=== PATIENT | male | born 1995 | race Caucasian/White ===

== ENCOUNTER 2018-09-09 10:34 | Emergency (ER) | payer OTHER ==
[2018-09-09 10:44] VITALS: BP 114/72
--- NOTE | 2018-09-09 10:52 | EDPHY ---
H & P Stated Complaint: States vomited 2x's last night quarter size blood noted x1, epigastric pain Time Seen by Provider: 09/09/18 10:39 HPI/ROS: CHIEF COMPLAINT: Vomiting blood HISTORY OF PRESENT ILLNESS: Patient is a 22-year-old man who comes to the emergency department complaining that last night he was vomiting. It Mostly was food but he had a couple specks of blood. It is now resolved. It no longer feels nauseous. He denies abdominal pain. He does however complain of intermittent frequent episodes of heartburn that is epigastric. He has not tried taking any medications. He also states that he has a hemorrhoid but it is not bleeding. This is not as concerning to him currently. He has seen his primary doctor who told him to change his diet he states that he does not feel constipated typically. Currently no pain. No fever. Severity: Moderate Modifying factors: Spontaneously resolved REVIEW OF SYSTEMS: Constitutional: denies: chills, fever, recent illness, recent injury EENTM: denies: blurred vision, double vision, nose congestion Respiratory: denies: cough, shortness of breath Cardiac: denies: chest pain, irregular heart rate, lightheadedness, palpitations Gastrointestinal/Abdominal: See HPI Genitourinary: denies: dysuria, frequency, hematuria, pain Musculoskeletal: denies: joint pain, muscle pain Skin: denies: lesions, rash, jaundice, bruising Neurological: denies: headache, numbness, paresthesia, tingling, dizziness, weakness Hematologic/Lymphatic: denies: blood clots, easy bleeding, easy bruising Immunologic/allergic: denies: HIV/AIDS, transplant 10 systems reviewed and negative except as noted EXAM: GENERAL: Well-appearing, well-nourished and in no acute distress. HEAD: Atraumatic, normocephalic. EYES: Pupils equal round and reactive to light, extraocular movements intact, sclera anicteric, conjunctiva are normal. ENT: TMs normal, nares patent, oropharynx clear without exudates. Moist mucous membranes. NECK: Normal range of motion, supple without lymphadenopathy or JVD. LUNGS: Breath sounds clear to auscultation bilaterally and equal. No wheezes rales or rhonchi. HEART: Regular rate and rhythm without murmurs, rubs or gallops. ABDOMEN: Soft, nontender, normoactive bowel sounds. No guarding, no rebound. No masses appreciated. BACK: No CVA tenderness, no spinal tenderness, step-offs or deformities EXTREMITIES: Normal range of motion, no pitting or edema. No clubbing or cyanosis. NEUROLOGICAL: Cranial nerves II through XII grossly intact. Normal speech, normal gait. 5/5 strength, normal movement in all extremities, normal sensation , normal reflexes PSYCH: Normal mood, normal affect. SKIN: Warm, dry, normal turgor, no visible rashes or lesions. Source: Patient Exam Limitations: No limitations - Personal History Current Tetanus Diphtheria and Acellular Pertussis (TDAP): Yes Tetanus Vaccine Date: 2012 - Medical/Surgical History Hx Asthma: No Hx Chronic Respiratory Disease: No Hx Diabetes: No Hx Cardiac Disease: No Hx Renal Disease: No Hx Cirrhosis: No Hx Alcoholism: No Hx HIV/AIDS: No Hx Splenectomy or Spleen Trauma: No Other PMH: Med hx-none. Surg-none - Family History Significant Family History: No pertinent family hx - Social History Smoking Status: Never smoked Alcohol Use: None Constitutional: Initial Vital Signs Temperature (C) 37.0 C 09/09/18 10:39 Heart Rate 76 09/09/18 10:39 Respiratory Rate 16 09/09/18 10:39 Blood Pressure 114/72 09/09/18 10:39 O2 Sat (%) 96 09/09/18 10:39 O2 Delivery Mode Room Air Allergies/Adverse Reactions: No Known Allergies Allergy (Verified 09/09/18 10:39) Home Medications: Medication Instructions Recorded Miscellaneous Medical Supply [NO 1 ea MISC AD 08/17/13 HOME MEDS] Famotidine [Pepcid] 40 mg PO HS #30 tablet 09/09/18 Medical Decision Making ED Course/Re-evaluation: Patient was having vomiting last night and had a small amount of blood. This has resolved. He is no longer nauseous or vomiting. He has no abdominal pain. His vital signs are stable. He also complains of mid intermittent heartburn type symptoms. I will start him on Pepcid and refer her to GI. He also states that he occasionally feels hemorrhoid when he wears. This is not been a problem recently. We discussed the use of cortisone cream. He understands these plans. We discussed indications for returning. He declines further workup or testing. Differential Diagnosis: Partial list of the Differential diagnosis considered include but were not limited to; hematemesis, peptic ulcer disease, varices, vomiting, hemorrhoid and although unlikely based on the history and physical exam, I also considered hemorrhage, infection, perforated ulcer. I discussed these differential diagnoses and the plan with the patient as well as the usual and expected course. The patient understands that the diagnosis is provisional and that in medicine we are not always correct and that further workup is often warranted. Usual and customary warnings were given. All of the patient's questions were answered. The patient was instructed to return to the emergency department should the symptoms at all worsen or return, otherwise to followup with the physician as we discussed. Departure - Departure Disposition: Home, Routine, Self-Care Clinical Impression: Heartburn symptom Vomiting Qualifiers: Vomiting type: unspecified Vomiting Intractability: non-intractable Nausea presence: with nausea Qualified Code(s): R11.2 - Nausea with vomiting, unspecified Condition: Fair Instructions: Famotidine (By mouth) Additional Instructions: Use cortisone cream for hemorrhoids symptoms. Referrals: NONE *PRIMARY CARE P,. [Primary Care Provider] - As per Instructions Tom Koo MD, FACG [Medical Doctor] - 5-7 days, call for appt. Prescriptions: Famotidine [Pepcid] 40 mg PO HS #30 tablet
== END 2018-09-09 10:53 | disposition home or self-care (01) ==
LOC: CED 10:34
DX: R12 Heartburn (principal); K92.0 Hematemesis